=== PATIENT | male | born 1965 ===

== ENCOUNTER 2017-03-25 21:07 | Emergency (ER) | payer OTHER ==
[2017-03-25 21:20] VITALS: BP 125/76; PULSE 76; RESP 18; TEMP 98.2; O2SAT 99
[2017-03-25 21:37] VITALS: BMI 20.9
--- NOTE | 2017-03-25 21:58 | ED PDOC ---
Arrival/HPI - General Chief Complaint: Back Pain Time Seen by Provider: 03/25/17 21:14 Historian: Patient - History of Present Illness Narrative History of Present Illness (Text): 03/25/17 22:20 A 51 year old male, with no past medical history, presents to the emergency department complaining of lower back pain that developed half an hour ago. Patient reports he was at work lifting a 50 pound bag and sharp pain developed from the groin to lower backd, mainly right side. Patient denies any trauma or injury. Denies any history of back surgery. Reports to taking Tylenol for pain. Reports tingling sensation in toes of right and left foot, but denies any lower extremity numbness, fever, vomiting or any other complaints at this time. Denies any drug use. PMD: None Time/Duration: 1/2 hour Symptom Onset: Sudden Symptom Course: Unchanged Activities at Onset: Light Context: Work Past Medical History - Provider Review Nursing Documentation Reviewed: Yes - Cardiac Hx Cardiac Disorders: No - Pulmonary Hx Respiratory Disorders: No - Neurological Hx Neurological Disorder: No - HEENT Hx HEENT Disorder: No - Renal Hx Renal Disorder: No - Endocrine/Metabolic Hx Endocrine Disorders: No - Hematological/Oncological Hx Blood Disorders: No - Integumentary Hx Dermatological Disorder: No - Musculoskeletal/Rheumatological Hx Musculoskeletal Disorders: No - Gastrointestinal Hx Gastrointestinal Disorders: No - Genitourinary/Gynecological Hx Genitourinary Disorders: No - Psychiatric Hx Psychophysiologic Disorder: No Hx Substance Use: No - Anesthesia Hx Anesthesia: No Family/Social History - Physician Review Nursing Documentation Reviewed: Yes Family/Social History: Other (non-contributory) Smoking Status: Never Smoked Hx Alcohol Use: No Hx Substance Use: No Allergies/Home Meds Allergies/Adverse Reactions: Allergies No Known Allergies Allergy (Verified 03/25/17 21:34) Review of Systems - Physician Review All systems were reviewed & negative as marked: Yes - Review of Systems Constitutional: absent: Fevers Gastrointestinal: absent: Vomiting Musculoskeletal: Back Pain (right sided lower back pain). absent: Other (lower extremity numbnes) Physical Exam Vital Signs Reviewed: Yes Vital Signs Temp Pulse Resp BP Pulse Ox 03/25/17 23:02 18 99 03/25/17 21:19 98.2 F 76 18 125/76 99 Appearance: Positive for: Well-Appearing, Non-Toxic, Comfortable Pain Distress: None Mental Status: Positive for: Alert and Oriented X 3 - Systems Exam Head: Present: Atraumatic, Normocephalic Pupils: Present: PERRL Extroacular Muscles: Present: EOMI Conjunctiva: Present: Normal Mouth: Present: Moist Mucous Membranes Neck: Present: Normal Range of Motion Respiratory/Chest: Present: Clear to Auscultation, Good Air Exchange. No: Respiratory Distress, Accessory Muscle Use Cardiovascular: Present: Regular Rate and Rhythm, Normal S1, S2. No: Murmurs Abdomen: Present: Normal Bowel Sounds. No: Tenderness, Distention, Peritoneal Signs Genitourinary Male: No: Testicle Tenderness, Hernias (inguinal) Back: Present: Paraspinal Tenderness. No: Midline Tenderness Upper Extremity: Present: Normal Inspection. No: Cyanosis, Edema Lower Extremity: Present: Normal Inspection, Neurovascularly Intact. No: Edema Neurological: Present: GCS=15, CN II-XII Intact, Speech Normal, Motor Func Grossly Intact, Normal Sensory Function, Other (no focal deficits) Skin: Present: Warm, Dry, Normal Color. No: Rashes Psychiatric: Present: Alert, Oriented x 3 Medical Decision Making - RAD Interpretation Radiology Orders: 03/25/17 21:42 LS SPINE AP/LAT [RAD] Stat - Medication Orders Current Medication Orders: Discontinued Medications Ketorolac Tromethamine (Toradol) 15 mg IM STAT STA Stop: 03/25/17 21:43 Last Admin: 03/25/17 23:02 Dose: 15 mg MAR Pain Assessment Document 03/25/17 23:02 [facility] (Rec: 03/25/17 23:[id number]) Pain Reassessment Is this a pain reassessment? No Sleep Is patient sleeping during reassessment? No Presence of Pain Presence of Pain Yes Pain Scale Used Pain Scale Used Numeric Location Pain Location Body Site Back Description Description Constant Intensity of Pain at present 7 Pain Behavior Facial Grimacing Aggravating Factors Changing Position Alleviating Factors/Management Position Change Techniques IM Administration Charges Document 03/25/17 23:02 [facility] (Rec: 03/25/17 23:[id number]) Injection Site MAR Injection Site Left Deltoid Charges for Administration # of IM Administrations 1 - Scribe Statement The provider has reviewed the documentation as recorded by the Heri Walter Provider Scribe Attestation: All medical record entries made by the Scribe were at my direction and personally dictated by me. I have reviewed the chart and agree that the record accurately reflects my personal performance of the history, physical exam, medical decision making, and the department course for this patient. I have also personally directed, reviewed, and agree with the discharge instructions and disposition. Disposition/Present on Arrival - Present on Arrival Any Indicators Present on Arrival: No History of DVT/PE: No History of Uncontrolled Diabetes: No Urinary Catheter: No History of Decub. Ulcer: No History Surgical Site Infection Following: None - Disposition Have Diagnosis and Disposition been Completed?: Yes Diagnosis: Low back pain Disposition: HOME/ ROUTINE Disposition Time: 23:02 Condition: STABLE Discharge Instructions (ExitCare): Acute Low Back Pain (ED) Additional Instructions: Please follow up with your doctor. Return to the ER for any worsening symptoms, numbness, weakness, problems with urination, or for any other concerns. Prescriptions: Naproxen [Naprosyn] 500 mg PO Q12H PRN #10 tablet PRN Reason: Pain, Moderate (4-7) Referrals: PCP,NO [Primary Care Provider] - Follow up with primary Forms: [facility] (Tai[place]ese), WORK NOTE
--- NOTE | 2017-03-26 08:41 | RAD ---
PROCEDURE: Radiographs of the Lumbar Spine. HISTORY: hurt back at work COMPARISON: No prior. FINDINGS: BONES: Normal alignment. No listhesis. No fracture. DISC SPACES: There is disc degeneration at L5-S1 OTHER FINDINGS: None. IMPRESSION: Disc degeneration at L5-S1
== END 2017-03-25 23:03 | disposition home or self-care (01) ==
LOC: ED 21:07
DX: M54.5 Low back pain (principal)
CPT/HCPCS: 72100; 96372; 99282; J1885